=== PATIENT | female | born 1965 | race American Indian/Alaskan Native ===

== ENCOUNTER 2020-11-29 07:43 | Day surgery (SDC) | payer OTHER | END 2020-11-29 22:39 | disposition home or self-care (01) | LOC: MOI US 07:43 | DX: N63.32 Unspecified lump in axillary tail of the left breast (principal) | CPT/HCPCS: 38505; 76942; 88305; A4648 ==

== ENCOUNTER → 2021-02-28 | Outpatient (CLI) | payer OTHER | END | disposition home or self-care (01) | LOC: LAB 14:50 → LAB SHORT 14:50 | DX: D48.5 Neoplasm of uncertain behavior of skin (principal) | CPT/HCPCS: 88305 ==

== ENCOUNTER 2022-08-10 06:39 | Day surgery (SDC) | payer OTHER ==
[~2022-08-10] VITALS: Ht 180.3 cm; Wt 97.0 kg
[~2022-08-10 06:39] MED LIST: ASPI81CH PO; ATOR80 PO; CREON DR 12,001 EACH PO; GABA400; HYDCHL25 PO; LISI20 PO; METO25ER PO; Nitroglycerin1 EAC3 TOP; PROG100 PO; TIZA4 PO; Triamcinolone A15 G3 TOP; ZOLP10 PO
[2022-08-10] MEDS ORDERED: Isosorbide Mono30 MG PO (07:07)
== END 2022-08-10 15:12 | disposition home or self-care (01) ==
LOC: MHTC 06:39
DX: I25.118 Atherosclerotic heart disease of native coronary artery with other forms of angina pectoris (principal); R07.89 Other chest pain; R94.39 Abnormal result of other cardiovascular function study; R00.2 Palpitations; I10 Essential (primary) hypertension; Z79.899 Other long term (current) drug therapy
CPT/HCPCS: 76937; 93454; 99152; A9270; C1769; C1887; C1894; J1644; J2250; J3010; J7030; J7050; Q9967